=== PATIENT | male | born 1980 | race Two or more races ===

== ENCOUNTER 2017-08-10 17:28 | Emergency (ER) | payer SELFPAY ==
[~2017-08-10] VITALS: Ht 170.2 cm; Wt 68.0 kg
--- NOTE | 2017-08-10 19:05 | RAD ---
CT THORACIC SPINE WO CONTRAST dated 08/10/2017 6:33 PM Indication: Back pain, recent fall?fx T7; pt fell off ladder. Comparison: No comparison is available. Technique: Contiguous axial imaging of the thoracic spine performed with thin cut coronal and sagittal reconstruction. One or more of the following individualized dose reduction techniques were utilized for this examination: 1. Automated exposure control 2. Adjustment of the mA and/or kV according to patient size 3. Use of iterative reconstruction technique Findings: Sagittal alignment is anatomic. Slight diminished height of the T7 and T8 vertebral bodies, without discrete fracture line or bony destructive process. There are sharply delimited central endplate depressions at the mid thoracic vertebral levels. Minimal multilevel hypertrophic changes with calcification at the T8-T9 disc. No apparent focal disc herniation. The bony canal and foramen are adequate. Visualized pulmonary parenchyma unremarkable. No significant soft tissue abnormality. IMPRESSION: 1. No evidence of acute fracture or malalignment. 2. Mildly diminished vertebral body heights at T7 and T8, likely remote. There is also H shaped vertebral bodies at the mid thoracic levels that are nonspecific. Recommend clinical correlation for history of sickle cell disease or other causes of remote microvascular endplate infarction. 3. Mild spondylosis. Electronically signed by: Eduardo Kapoor MD (08/10/2017 7:01 PM) [facility]
[2017-08-10 19:52] VITALS: BP 143/81
[2017-08-10] MEDS ORDERED: IBUP-1060 PO (19:59)
--- NOTE | 2017-08-10 19:59 | PHYS DOC ---
Past Medical History Past Medical History: No Pertinent History Past Surgical History: Appendectomy Alcohol Use: None Drug Use: None Adult General Chief Complaint Chief Complaint: MECHANICAL FALL HPI HPI Patient is a 37 year old male who presents ambulatory to the ED. Patient states that this morning, he was on a ladder about 10 feet off the ground. His foot slipped on the rung of the ladder and he fell off. He fell to a concrete driveway and landed on his butt ox. The ladder did not fall down with him. The patient states he did not fall backwards and hit his head. He denies injury elsewhere. He was able to get right up and continue doing what he was doing. As the day went on, he has developed some pain in the center of the middle of his back. He describes the pain as something "sticking him" in that area. He denies shortness of air. Denies abdominal pain. He's had no other complaints. Patient denies pain down his legs. Denies weakness of his legs. Denies bowel or bladder symptoms. Patient denies previous back injury to his knowledge. No chronic back pain. Review of Systems Review of Systems GI: Denies abdominal pain : Denies dysuria or hematuria [] Musculoskeletal: Denies injury or pain to extremities Neurologic: Denies headache or head injury Allergies Allergies Allergies Coded Allergies Type Severity Reaction Last Updated Verified No Known Drug Allergies 08/10/17 No Physical Exam Physical Exam Constitutional: Well developed, well nourished, no acute distress, non-toxic appearance. Ambulatory without difficulty, no dyspnea. HENT: Normocephalic, atraumatic, bilateral external ears normal, nose normal. [ ] Eyes: conjunctiva normal, no discharge. [] Neck: Normal range of motion, no tenderness, supple, no stridor. [] Cardiovascular:Heart rate regular rhythm, no murmur [] Lungs & Thorax: Bilateral breath sounds clear to auscultation [] Skin: Warm, dry, no erythema, no rash. [] Back: No evidence of trauma. No deformity or contusion. Palpation of the patient 's spine: Cervical spine entirely nontender to palpation. Thoracic spine with some mild to moderate tenderness to palpation of the mid thoracic spine in the midline, no deformity. Lower thoracic and lumbar spine nontender to palpation. Extremities: No tenderness, no cyanosis, no clubbing, ROM intact, no edema. [] Neurologic: Alert and oriented X 3, normal motor function, no focal deficits noted. [] Current Patient Data Vital Signs Vital Signs Date Time Temp Pulse Resp B/P (MAP) Pulse Ox O2 Delivery O2 Flow Rate FiO2 08/10/17 19:52 86 16 98 08/10/17 17:35 98.2 130/73 (92) Room Air 98.2 EKG EKG [] Radiology/Procedures Radiology/Procedures Plain films of the thoracic and lumbar spine read by me. I am concerned about some loss of height of approximately T7 and T8. Otherwise unremarkable. CT scan of the thoracic spine read by the radiologist. No acute findings. There is minimal loss of height of T7 and T8 that appears to be old. No concern for acute injury.[] Course & Med Decision Making Course & Med Decision Making Pertinent Labs and Imaging studies reviewed. (See chart for details) 37-year-old male presents ambulatory several hours after a fall off of the ladder. The patient is stable. Full evaluation reveals no bony injury today. The patient has muscle strain and contusion secondary to the fall. He is stable for discharge. See instructions for plan. [] Dragon Disclaimer Dragon Disclaimer This electronic medical record was generated, in whole or in part, using a voice recognition dictation system. Departure Departure Impression: Primary Impression: Fall on and from ladder, initial encounter Additional Impressions: Back pain Abnormal x-ray of thoracic spine Disposition: 01 HOME, SELF-CARE Condition: STABLE Referrals: NO PCP (PCP) Patient Instructions: Back Pain, Adult, [id number] Additional Instructions: X-rays of your back showed an area that I was concerned about, but the more detailed CT scan showed that nothing is broken today. The Abnormal appearance might be from an injury at some other time in your life, and it is nothing to worry about. We will treat your back pain today like a bruised and strained back from the fall. Ice 15-20 minutes out of every 1-2 hours to the area of pain. Ibuprofen as prescribed for pain. If not better in 10-14 days, see your doctor for recheck. Scripts Ibuprofen (IBUPROFEN) 800 Mg Tablet 800 MG PO PRN Q6HRS Y for PAIN, #30 TAB Prov: DEYSI WILHELM MD 08/10/17 Problem Qualifiers DEYSI WILHELM MD Aug 10, 2017 19:59
--- NOTE | 2017-08-11 08:39 | RAD ---
Lumbar spine, 3 views, 08/10/2017: History: Fall, pain The lumbar vertebral heights are well-maintained. No fracture or dislocation is identified. There are minimal scattered marginal spurs. The paraspinous soft tissues are unremarkable. IMPRESSION: No acute lumbar spine abnormality is detected. Thoracolumbar spine, 2 views, 08/10/2017: Two views of the spine centered at the thoracolumbar junction level was obtained. There is slight loss of height anteriorly of the T7 and T8 vertebral bodies. The other thoracic vertebral heights are well-maintained. There are mild scattered marginal spurs. IMPRESSION: 1. Slight loss of height of the T7 and T8 vertebral bodies, of indeterminate ages. 2. Minimal marginal spurring
== END 2017-08-10 20:09 | disposition home or self-care (01) ==
LOC: ER 17:28
DX: M54.6 Pain in thoracic spine (principal); S09.90XA Unspecified injury of head, initial encounter; R93.8 Abnormal findings on diagnostic imaging of other specified body structures; Z90.49 Acquired absence of other specified parts of digestive tract; W11.XXXA Fall on and from ladder, initial encounter; Y93.89 Activity, other specified; Y99.8 Other external cause status; Y92.89 Other specified places as the place of occurrence of the external cause
CPT/HCPCS: 72080; 72100; 72128; 99284